=== PATIENT | female | born 1975 | race African-American/Black ===

== ENCOUNTER → 2016-11-30 | Outpatient (CLI) | payer BC ==
[~2016-11-30] MED LIST: AFRIN3 ML NS; ANAPROX DS550 M1 PO; BACTRIM DS TABL1 TA2 PO; FLEXERIL10 M1 PO; SUDAFED30 M1 PO; ZOFRAN ODT4 MG/UDTAB PO; ZOLOFT PO
--- NOTE | ~2016-11-30 | US128 ---
[id number] [facility] [address] [place], [place] [address] [id number] O MR#: [id number] Acc #: [id number] NAME: JAIMIE HUGHES : 1975 SEX: F STUDY DATE/TIME: 11/30/2016 8:47 UNIT: [facility] ROOM: STUDY DESCRIPTION: Thyroid Attending Physician: Antonia Calixto M.D. Referring Physician: Antonia Calixto M.D. Ordering Physician: Antonia Calixto M.D. Primary Care Physician: Antonia Calixto M.D. MEDICAL IMAGING REPORT This report is preliminary unless electronic signature is present REVISED REPORT SEE ADDENDUM EXAM Thyroid ultrasound 11/30/2016. INDICATIONS 41-year-old female with history of thyroid fullness. Diagnosed with an abnormal thyroid on exam a couple weeks ago by her physician. The patient complains of dysphasia symptoms for a year. TECHNIQUE Sonographic imaging of the thyroid gland was performed. COMPARISON No comparisons. FINDINGS The right thyroid lobe measures 2.4 x 1.2 x 4.7 cm and the left 2.2 x 1.5 x 5.6 mm. Thyroid isthmus measures about 5 mm. There is no distinct cystic or solid nodule on either side. Echogenicity is within normal range. Vascularity unremarkable. IMPRESSION 1. Borderline to mild thyromegaly on the right, otherwise negative thyroid ultrasound. Dictated by... Ailin Woods TD: 11/30/2016 13:33 JOB #: [id number] ADDENDUM There is a measurement error in the findings section of the original report. Dimensions of the left thyroid lobe are approximately 2.2 x 1.5 cm x 5.6 cm. IMPRESSION Borderline to mild thyromegaly bilaterally, otherwise negative thyroid ultrasound. Dictated by... Maik Marx M.D. THIS IS AN ELECTRONICALLY VERIFIED REPORT Maik Marx M.D. at 03/05/2017 5:22 PM Kraig TD: 03/02/2017 12:55 JOB #: [id number] CC: Sovera/invision Please Delete MEDICAL IMAGING REPORT Page 1 of 1 COPY
--- NOTE | ~2016-11-30 | US98 ---
[facility] A Service of [facility] & [facility] RADIOLOGY TEXT RESULTS PATIENT: JAIMIE HUGHES LOCATION: [facility] : [birth year] UNIT #: [id number] AGE: [address]: Antonia Calixto MD SEX: F ORDER DR: [id number] [facility] [address] [place], [place] [address] [id number] O MR#: [id number] Acc #: [id number] NAME: JAIMEI HUGHES : 1975 SEX: F STUDY DATE/TIME: 11/30/2016 8:53 UNIT: [facility] ROOM: STUDY DESCRIPTION: US Pelvic Non-OB Complete Attending Physician: Antonia Calixto M.D. Referring Physician: Antonia Calixto M.D. Ordering Physician: Antonia Calixto M.D. Primary Care Physician: Antonia Calixto M.D. MEDICAL IMAGING REPORT This report is preliminary unless electronic signature is present EXAM Transabdominal and transvaginal pelvic ultrasound, 11/30/2016 HISTORY Diffuse pelvic pain. Patient states ovarian cyst. The patient states pelvic pain has been present for a few months. On Depo-Provera injection. G6, P6. Last menstrual period September 2016. Additional history of frequency and overactive bladder. COMPARISON CT abdomen and pelvis without and with contrast 05/28/2014. No previous pelvic ultrasound at this institution for comparison. FINDINGS Transabdominal images was performed for generalized visualization of pelvic structures while transvaginal imaging was performed for more detailed evaluation of the adnexal regions. The uterus measures approximately 8.2 x 4.1 x 4.4 cm. Endometrial bilayer thickness is approximately 1.0 mm. No focal endometrial or myometrium lesions are identified. No fluid is seen within the endometrial canal. The right ovary measures 2.0 x 2.9 x 2.2 cm and contains approximately 3 peripheral follicles, the dominant follicle measuring about 10.0 mm. Normal color and spectral Doppler flow was documented to the right ovary. The left ovary is best visualized on the transabdominal portion of the examination measuring 3.1 x 2.6 x 2.3 cm. The left ovary contains a couple of follicles, the dominant measuring 8.0 mm. No suspicious cystic or solid mass lesion is identified and the left ovary demonstrates normal color and spectral Doppler flow. No pelvic free fluid is evident. [facility] A Service of [facility] RADIOLOGY TEXT RESULTS PATIENT: JAIMIE HUGHES LOCATION: [facility] : 79 UNIT #: [id number] AGE: [address]: Antonia Calixto MD SEX: F ORDER DR: IMPRESSION Normal transabdominal and transvaginal pelvic ultrasound. The endometrial bilayer is thin, but this may be related to the patient's reported history of Depo-Provera injections. No cystic or solid ovarian or adnexal mass lesion is identified on today's examination. Dictated by... Tessa Oneal M.D. THIS IS AN ELECTRONICALLY VERIFIED REPORT Tessa Oneal M.D. at 12/01/2016 7:08 AM Ryan TD: 11/30/2016 13:29 JOB #: [id number] MEDICAL IMAGING REPORT Page 1 of 1 COPY
== END | disposition home or self-care (01) ==
LOC: CWCC 11-26 14:15
DX: E07.89 Other specified disorders of thyroid (principal); N83.209 Unspecified ovarian cyst, unspecified side; R10.2 Pelvic and perineal pain; E01.0 Iodine-deficiency related diffuse (endemic) goiter; Z79.899 Other long term (current) drug therapy
CPT/HCPCS: 76536; 76830; 76856